=== PATIENT | male | born 1965 | race African-American/Black ===

== ENCOUNTER 2022-07-02 18:06 | Inpatient (IN) | payer OTHER ==
[2022-07-02 20:07] VITALS: BMI 34.7
[2022-07-02] MEDS ORDERED: BISMUTH SUBSALICYLATE 524 MG/30 ML PO PRN (20:31)
[2022-07-02] MEDS ORDERED: IBUPROFEN 400 MG TABLET (FP) PO PRN (20:31)
[2022-07-02] MEDS ORDERED: NICOTINE 10 MG CARTRIDGE (INHALER) IH PRN (20:31)
[2022-07-02] MEDS ORDERED: MAGNESIUM HYDROX 2400MG/30ML ORAL SUSPENSION 30 ML CUP PO PRN (20:31)
[2022-07-02] MEDS ORDERED: NALOXONE HCL (KLOXXADO) 8 MG SPRAY NS PRN (20:31)
[2022-07-02] MEDS ORDERED: ACETAMINOPHEN 325 MG TABLET (FP) PO PRN ×2 (20:31)
[2022-07-02] MEDS ORDERED: DICYCLOMINE HCL 10 MG CAPSULE PO PRN (20:31)
[2022-07-02] MEDS ORDERED: P-EPHED 60MG/TRIPROLIDI 2.5MG TABLET PO PRN (20:31)
[2022-07-02] MEDS ORDERED: NALOXONE HCL 0.4 MG/ML VIAL IM PRN (20:31)
[2022-07-02] MEDS ORDERED: ONDANSETRON *ODT* 4 MG TABLET SL PRN (20:31)
[2022-07-02] MEDS ORDERED: MAGNESIUM CITRATE 300 ML BOTTLE PO PRN (20:31)
[2022-07-02] MEDS ORDERED: guaiFENesin 200 MG/10 ML 10 ML UNIT-DOSE CUPS PO PRN (20:31)
[2022-07-02] MEDS ORDERED: IBUPROFEN 600 MG TABLET (FP) PO PRN (20:31)
[2022-07-02] MEDS ORDERED: MAG HYDROX/AL HYDROX/SIMETH 30 ML UNIT-DOSE CUP PO PRN (20:31)
[2022-07-02] MEDS ORDERED: BENZOCAINE/MENTHOL (CHLORASEPTIC ) LOZENGE MM PRN (20:31)
[2022-07-02] MEDS ORDERED: AMMONIUM LACTATE 12% LOTION 225 GM BOTTLE TP PRN (20:33)
[2022-07-02] MEDS ORDERED: diphenhydrAMINE HCL 25 MG CAPSULE (FP) PO ONE ×2 (20:33→20:50)
[2022-07-02] MEDS ORDERED: hydrOXYzine PAMOATE 25 MG CAPSULE (FP) PO ONE (20:52)
[2022-07-02] MEDS: hydrOXYzine PAMOATE 25 MG CAPSULE (FP) PO PRN (20:59)
[2022-07-02] MEDS ORDERED: diphenhydrAMINE HCL 25 MG CAPSULE (FP) PO PRN (22:33)
[2022-07-02] MEDS: MELATONIN 5 MG TABLETS PO PRN (22:47)
[2022-07-02] MEDS: THIAMINE HCL 100 MG TABLET (FP) PO SCH (22:47)
[2022-07-02] MEDS: GABAPENTIN 400 MG CAPSULE PO SCH (22:48)
[2022-07-02] MEDS: ASPIRIN 81 MG CHEWABLE TABLETS PO SCH (22:48)
[2022-07-02] MEDS: cloNIDine HCL 0.1 MG TABLET PO PRN (22:48)
[2022-07-03] MEDS: metFORMIN HCL 500 MG TABLET (FP) PO SCH (06:09)
[2022-07-03] MEDS: METHOCARBAMOL 500 MG TABLET PO PRN (10:26)
[2022-07-03] MEDS: ASPIRIN 81 MG CHEWABLE TABLETS PO SCH (10:27)
[2022-07-03] MEDS: GABAPENTIN 400 MG CAPSULE PO SCH ×2 (10:27→22:45)
[2022-07-03] MEDS: PRENATAL VITAMINS W/ FOLIC ACID TABLET (FP) PO SCH (10:28)
[2022-07-03] MEDS: EMTRICITABINE 200MG/TENOFOVIR 300MG PO SCH (11:00)
[2022-07-03] MEDS: LISINOPRIL 5 MG TABLET PO SCH (11:00)
[2022-07-03] MEDS: RALTEGRAVIR POTASSIUM 400 MG TAB PO SCH ×2 (11:00→22:46)
[2022-07-03 15:28] LABS: HEMATOCRIT 40.9 % (35.4-49); HEMOGLOBIN 13.8 GM/dL (11.7-16.9); MCH 28.6 pg (25.7-33.7); MCHC 33.7 g/dl (32.0-35.9); MEAN CELL VOLUME 84.9 fl (80-96); MEAN PLT VOLUME 8.8 fl (7.5-11.1); PLATELET COUNT 262 10^3/uL (134-434); RBC 4.82 M/mm3 (4.00-5.60); RDW 13.8 % (11.9-15.9); WHITE BLOOD COUNT 5.7 K/mm3 (4.0-10.0)
[2022-07-03 18:14] LABS: ALBUMIN 3.2 g/dl (3.4-5.0)
[2022-07-03 18:15] LABS: CALCIUM 8.7 mg/dL (8.5-10.1)
[2022-07-03 18:16] LABS: BLOOD UREA NITROGEN 9.7 mg/dL (7-18)
[2022-07-03 18:21] LABS: BILIRUBIN,TOTAL 0.7 mg/dL (0.2-1)
[2022-07-03] MEDS: CITALOPRAM HYDROBROMIDE 20 MG TABLET PO SCH (18:29)
[2022-07-03] MEDS: THIAMINE HCL 100 MG TABLET (FP) PO SCH (22:45)
[2022-07-04] MEDS: metFORMIN HCL 500 MG TABLET (FP) PO SCH (07:00)
[2022-07-04] MEDS ORDERED: methaDONE HCL 10 MG TABLET (FOR DETOX USE ONLY) PO ONE (10:00)
[2022-07-04] MEDS: PRENATAL VITAMINS W/ FOLIC ACID TABLET (FP) PO SCH (10:34)
[2022-07-04] MEDS: RALTEGRAVIR POTASSIUM 400 MG TAB PO SCH ×2 (10:34→22:34)
[2022-07-04] MEDS: ASPIRIN 81 MG CHEWABLE TABLETS PO SCH (10:35)
[2022-07-04] MEDS: EMTRICITABINE 200MG/TENOFOVIR 300MG PO SCH (10:35)
[2022-07-04] MEDS: GABAPENTIN 400 MG CAPSULE PO SCH ×2 (10:35→22:35)
[2022-07-04] MEDS: LISINOPRIL 5 MG TABLET PO SCH (10:35)
[2022-07-04] MEDS: METHOCARBAMOL 500 MG TABLET PO PRN (10:35)
[2022-07-04] MEDS: CITALOPRAM HYDROBROMIDE 20 MG TABLET PO SCH (10:37)
[2022-07-04] MEDS: cloNIDine HCL 0.1 MG TABLET PO PRN (22:35)
[2022-07-04] MEDS: MELATONIN 5 MG TABLETS PO PRN (22:35)
[2022-07-04] MEDS: THIAMINE HCL 100 MG TABLET (FP) PO SCH (22:35)
[2022-07-04] MEDS: hydrOXYzine PAMOATE 25 MG CAPSULE (FP) PO PRN (22:35)
[2022-07-04] MEDS: LOPERAMIDE HCL 2 MG CAPSULE PO PRN (23:00)
[2022-07-05] MEDS: metFORMIN HCL 500 MG TABLET (FP) PO SCH (06:22)
[2022-07-05] MEDS: hydrOXYzine PAMOATE 25 MG CAPSULE (FP) PO PRN ×2 (06:23→22:44)
[2022-07-05] MEDS: LOPERAMIDE HCL 2 MG CAPSULE PO PRN (06:23)
[2022-07-05] MEDS ORDERED: DIPHENOXYLATE 2.5/ATROPINE.025 1 COMBO TABLET PO ONE (09:25)
[2022-07-05] MEDS: CITALOPRAM HYDROBROMIDE 20 MG TABLET PO SCH (10:08)
[2022-07-05] MEDS: LISINOPRIL 5 MG TABLET PO SCH (10:08)
[2022-07-05] MEDS: GABAPENTIN 400 MG CAPSULE PO SCH ×2 (10:08→22:44)
[2022-07-05] MEDS: EMTRICITABINE 200MG/TENOFOVIR 300MG PO SCH (10:08)
[2022-07-05] MEDS: RALTEGRAVIR POTASSIUM 400 MG TAB PO SCH ×2 (10:08→22:45)
[2022-07-05] MEDS: ASPIRIN 81 MG CHEWABLE TABLETS PO SCH (10:08)
[2022-07-05] MEDS: PRENATAL VITAMINS W/ FOLIC ACID TABLET (FP) PO SCH (10:14)
[2022-07-05] MEDS: MELATONIN 5 MG TABLETS PO PRN (22:44)
[2022-07-05] MEDS: METHOCARBAMOL 500 MG TABLET PO PRN (22:44)
[2022-07-05] MEDS: THIAMINE HCL 100 MG TABLET (FP) PO SCH (22:44)
[2022-07-06] MEDS: metFORMIN HCL 500 MG TABLET (FP) PO SCH (06:42)
[2022-07-06] MEDS ORDERED: methaDONE HCL 10 MG TABLET (FOR DETOX USE ONLY) PO ONE (10:00)
[2022-07-06] MEDS: CITALOPRAM HYDROBROMIDE 20 MG TABLET PO SCH (10:47)
[2022-07-06] MEDS: PRENATAL VITAMINS W/ FOLIC ACID TABLET (FP) PO SCH (10:47)
[2022-07-06] MEDS: ASPIRIN 81 MG CHEWABLE TABLETS PO SCH (10:47)
[2022-07-06] MEDS: GABAPENTIN 400 MG CAPSULE PO SCH ×2 (10:47→22:41)
[2022-07-06] MEDS: LISINOPRIL 5 MG TABLET PO SCH (10:48)
[2022-07-06] MEDS: RALTEGRAVIR POTASSIUM 400 MG TAB PO SCH ×2 (10:48→22:41)
[2022-07-06] MEDS: EMTRICITABINE 200MG/TENOFOVIR 300MG PO SCH (10:48)
[2022-07-06] MEDS: THIAMINE HCL 100 MG TABLET (FP) PO SCH (22:41)
[2022-07-06] MEDS: hydrOXYzine PAMOATE 25 MG CAPSULE (FP) PO PRN (22:41)
[2022-07-06] MEDS: METHOCARBAMOL 500 MG TABLET PO PRN (22:41)
[2022-07-07] MEDS: metFORMIN HCL 500 MG TABLET (FP) PO SCH (06:14)
[2022-07-07] MEDS: GABAPENTIN 400 MG CAPSULE PO SCH (10:40)
[2022-07-07] MEDS: LISINOPRIL 5 MG TABLET PO SCH (10:40)
[2022-07-07] MEDS: ASPIRIN 81 MG CHEWABLE TABLETS PO SCH (10:41)
[2022-07-07] MEDS: PRENATAL VITAMINS W/ FOLIC ACID TABLET (FP) PO SCH (10:41)
[2022-07-07] MEDS: hydrOXYzine PAMOATE 25 MG CAPSULE (FP) PO PRN (10:41)
[2022-07-07] MEDS: METHOCARBAMOL 500 MG TABLET PO PRN (10:41)
[2022-07-07] MEDS: EMTRICITABINE 200MG/TENOFOVIR 300MG PO SCH (10:42)
[2022-07-07] MEDS: CITALOPRAM HYDROBROMIDE 20 MG TABLET PO SCH (10:42)
[2022-07-07] MEDS: RALTEGRAVIR POTASSIUM 400 MG TAB PO SCH (10:42)
[2022-07-07] MEDS: LOPERAMIDE HCL 2 MG CAPSULE PO PRN (10:44)
[2022-07-07 13:32] VITALS: BP 129/63; PULSE 91; RESP 19; TEMP 97.7
== END 2022-07-07 14:36 | disposition other institution (70) | DRG 773 ==
LOC: YASAS 18:06 → Y6N 21:41
PROVIDERS: ADMIT Allergy & Immunology; ATTEND Surgery
PROC: HZ2ZZZZ Detoxification Services for Substance Abuse Treatment (ICD-10-PCS; principal; 2022-07-02)
DX: F11.23 Opioid dependence with withdrawal (principal); F10.230 Alcohol dependence with withdrawal, uncomplicated; F14.20 Cocaine dependence, uncomplicated; F12.20 Cannabis dependence, uncomplicated; F17.210 Nicotine dependence, cigarettes, uncomplicated; F39 Unspecified mood [affective] disorder; F19.282 Other psychoactive substance dependence with psychoactive substance-induced sleep disorder; F19.280 Other psychoactive substance dependence with psychoactive substance-induced anxiety disorder; F19.24 Other psychoactive substance dependence with psychoactive substance-induced mood disorder; Z21 Asymptomatic human immunodeficiency virus [HIV] infection status; I10 Essential (primary) hypertension; E11.42 Type 2 diabetes mellitus with diabetic polyneuropathy; Z79.84 Long term (current) use of oral hypoglycemic drugs; B18.2 Chronic viral hepatitis C
CPT/HCPCS: 36415; 80053; 82962; 84450; 85027; 86780; 87811; 93005; 93010; 99281-25; C9803-CS; U0003; U0005

== ENCOUNTER 2022-07-07 14:30 | Inpatient (IN) | payer OTHER ==
[2022-07-07] MEDS ORDERED: P-EPHED 60MG/TRIPROLIDI 2.5MG TABLET PO PRN (15:07)
[2022-07-07] MEDS ORDERED: MAGNESIUM HYDROX 2400MG/30ML ORAL SUSPENSION 30 ML CUP PO PRN (15:07)
[2022-07-07] MEDS ORDERED: MAG HYDROX/AL HYDROX/SIMETH 30 ML UNIT-DOSE CUP PO PRN (15:07)
[2022-07-07] MEDS ORDERED: IBUPROFEN 400 MG TABLET (FP) PO PRN (15:07)
[2022-07-07] MEDS ORDERED: MAGNESIUM CITRATE 300 ML BOTTLE PO PRN (15:07)
[2022-07-07] MEDS ORDERED: ACETAMINOPHEN 325 MG TABLET (FP) PO PRN (15:07)
[2022-07-07] MEDS ORDERED: LOPERAMIDE HCL 2 MG CAPSULE PO PRN (15:07)
[2022-07-07] MEDS: INSULIN SLIDING SCALE (NOVOLOG) 1 VIAL SQ SCH (19:33)
[2022-07-07] MEDS: MELATONIN 5 MG TABLETS PO SCH (21:43)
[2022-07-07] MEDS: GABAPENTIN 400 MG CAPSULE PO SCH (21:44)
[2022-07-07] MEDS: RALTEGRAVIR POTASSIUM 400 MG TAB PO SCH (21:44)
[2022-07-07] MEDS: THIAMINE HCL 100 MG TABLET (FP) PO SCH (21:44)
[2022-07-08] MEDS: metFORMIN HCL 500 MG TABLET (FP) PO SCH (06:11)
[2022-07-08] MEDS: INSULIN SLIDING SCALE (NOVOLOG) 1 VIAL SQ SCH ×2 (06:14→19:57)
[2022-07-08] MEDS: PRENATAL VITAMINS W/ FOLIC ACID TABLET (FP) PO SCH (10:05)
[2022-07-08] MEDS: RALTEGRAVIR POTASSIUM 400 MG TAB PO SCH ×2 (10:05→21:32)
[2022-07-08] MEDS: EMTRICITABINE 200MG/TENOFOVIR 300MG PO SCH (10:05)
[2022-07-08] MEDS: GABAPENTIN 400 MG CAPSULE PO SCH ×2 (10:06→21:32)
[2022-07-08] MEDS: ASPIRIN COATED 81 MG TABLET.EC PO SCH (10:06)
[2022-07-08] MEDS: LISINOPRIL 5 MG TABLET PO SCH (10:06)
[2022-07-08] MEDS: lamoTRIgine 25 MG TABLET PO SCH (11:23)
[2022-07-08] MEDS: CITALOPRAM HYDROBROMIDE 20 MG TABLET PO SCH (11:23)
[2022-07-08] MEDS: THIAMINE HCL 100 MG TABLET (FP) PO SCH (21:31)
[2022-07-08] MEDS: MELATONIN 5 MG TABLETS PO SCH (21:31)
[2022-07-09] MEDS: metFORMIN HCL 500 MG TABLET (FP) PO SCH (06:29)
[2022-07-09] MEDS: INSULIN SLIDING SCALE (NOVOLOG) 1 VIAL SQ SCH ×2 (06:30→16:39)
[2022-07-09] MEDS: PRENATAL VITAMINS W/ FOLIC ACID TABLET (FP) PO SCH (10:05)
[2022-07-09] MEDS: RALTEGRAVIR POTASSIUM 400 MG TAB PO SCH ×2 (10:05→21:31)
[2022-07-09] MEDS: EMTRICITABINE 200MG/TENOFOVIR 300MG PO SCH (10:05)
[2022-07-09] MEDS: lamoTRIgine 25 MG TABLET PO SCH (10:05)
[2022-07-09] MEDS: CITALOPRAM HYDROBROMIDE 20 MG TABLET PO SCH (10:05)
[2022-07-09] MEDS: GABAPENTIN 400 MG CAPSULE PO SCH ×2 (10:06→21:31)
[2022-07-09] MEDS: LISINOPRIL 5 MG TABLET PO SCH (10:06)
[2022-07-09] MEDS: ASPIRIN COATED 81 MG TABLET.EC PO SCH (10:07)
[2022-07-09] MEDS: MELATONIN 5 MG TABLETS PO SCH (21:30)
[2022-07-09] MEDS: THIAMINE HCL 100 MG TABLET (FP) PO SCH (21:31)
[2022-07-10] MEDS: INSULIN SLIDING SCALE (NOVOLOG) 1 VIAL SQ SCH ×2 (06:40→16:37)
[2022-07-10] MEDS: metFORMIN HCL 500 MG TABLET (FP) PO SCH (06:46)
[2022-07-10] MEDS: PRENATAL VITAMINS W/ FOLIC ACID TABLET (FP) PO SCH (09:21)
[2022-07-10] MEDS: LISINOPRIL 5 MG TABLET PO SCH (09:22)
[2022-07-10] MEDS: GABAPENTIN 400 MG CAPSULE PO SCH ×2 (09:22→21:07)
[2022-07-10] MEDS: ASPIRIN COATED 81 MG TABLET.EC PO SCH (09:22)
[2022-07-10] MEDS: RALTEGRAVIR POTASSIUM 400 MG TAB PO SCH ×2 (09:23→21:11)
[2022-07-10] MEDS: EMTRICITABINE 200MG/TENOFOVIR 300MG PO SCH (09:23)
[2022-07-10] MEDS: lamoTRIgine 25 MG TABLET PO SCH (09:24)
[2022-07-10] MEDS: CITALOPRAM HYDROBROMIDE 20 MG TABLET PO SCH (09:24)
[2022-07-10] MEDS: MELATONIN 5 MG TABLETS PO SCH (21:07)
[2022-07-10] MEDS: THIAMINE HCL 100 MG TABLET (FP) PO SCH (21:08)
[2022-07-10] MEDS: BENZOCAINE/MENTHOL (CHLORASEPTIC ) LOZENGE MM PRN (23:31)
[2022-07-11] MEDS: guaiFENesin 200 MG/10 ML 10 ML UNIT-DOSE CUPS PO PRN (00:37)
[2022-07-11] MEDS: metFORMIN HCL 500 MG TABLET (FP) PO SCH (06:42)
[2022-07-11] MEDS: INSULIN SLIDING SCALE (NOVOLOG) 1 VIAL SQ SCH ×2 (06:43→16:51)
[2022-07-11] MEDS: PRENATAL VITAMINS W/ FOLIC ACID TABLET (FP) PO SCH (09:48)
[2022-07-11] MEDS: LISINOPRIL 5 MG TABLET PO SCH (09:48)
[2022-07-11] MEDS: CITALOPRAM HYDROBROMIDE 20 MG TABLET PO SCH (09:49)
[2022-07-11] MEDS: GABAPENTIN 400 MG CAPSULE PO SCH ×2 (09:49→21:27)
[2022-07-11] MEDS: ASPIRIN COATED 81 MG TABLET.EC PO SCH (09:49)
[2022-07-11] MEDS: lamoTRIgine 25 MG TABLET PO SCH (10:05)
[2022-07-11] MEDS: RALTEGRAVIR POTASSIUM 400 MG TAB PO SCH ×2 (10:05→21:27)
[2022-07-11] MEDS: EMTRICITABINE 200MG/TENOFOVIR 300MG PO SCH (10:05)
[2022-07-11] MEDS: MELATONIN 5 MG TABLETS PO SCH (21:27)
[2022-07-11] MEDS: THIAMINE HCL 100 MG TABLET (FP) PO SCH (21:27)
[2022-07-12] MEDS: metFORMIN HCL 500 MG TABLET (FP) PO SCH (06:36)
[2022-07-12] MEDS: INSULIN SLIDING SCALE (NOVOLOG) 1 VIAL SQ SCH ×2 (06:36→16:50)
[2022-07-12] MEDS: CITALOPRAM HYDROBROMIDE 20 MG TABLET PO SCH (10:17)
[2022-07-12] MEDS: lamoTRIgine 25 MG TABLET PO SCH (10:17)
[2022-07-12] MEDS: ASPIRIN COATED 81 MG TABLET.EC PO SCH (10:17)
[2022-07-12] MEDS: GABAPENTIN 400 MG CAPSULE PO SCH ×2 (10:17→21:21)
[2022-07-12] MEDS: LISINOPRIL 5 MG TABLET PO SCH (10:18)
[2022-07-12] MEDS: PRENATAL VITAMINS W/ FOLIC ACID TABLET (FP) PO SCH (10:18)
[2022-07-12] MEDS: RALTEGRAVIR POTASSIUM 400 MG TAB PO SCH ×2 (10:18→21:21)
[2022-07-12] MEDS: EMTRICITABINE 200MG/TENOFOVIR 300MG PO SCH (10:18)
[2022-07-12] MEDS: guaiFENesin 200 MG/10 ML 10 ML UNIT-DOSE CUPS PO PRN ×2 (10:18→21:23)
[2022-07-12] MEDS: MELATONIN 5 MG TABLETS PO SCH (21:21)
[2022-07-12] MEDS: THIAMINE HCL 100 MG TABLET (FP) PO SCH (21:21)
[2022-07-12] MEDS: BENZOCAINE/MENTHOL (CHLORASEPTIC ) LOZENGE MM PRN (21:23)
[2022-07-13] MEDS: metFORMIN HCL 500 MG TABLET (FP) PO SCH (06:35)
[2022-07-13] MEDS: INSULIN SLIDING SCALE (NOVOLOG) 1 VIAL SQ SCH ×2 (06:36→16:53)
[2022-07-13] MEDS: PRENATAL VITAMINS W/ FOLIC ACID TABLET (FP) PO SCH (09:55)
[2022-07-13] MEDS: GABAPENTIN 400 MG CAPSULE PO SCH ×2 (09:56→21:11)
[2022-07-13] MEDS: CITALOPRAM HYDROBROMIDE 20 MG TABLET PO SCH (09:56)
[2022-07-13] MEDS: ASPIRIN COATED 81 MG TABLET.EC PO SCH (09:56)
[2022-07-13] MEDS: RALTEGRAVIR POTASSIUM 400 MG TAB PO SCH ×2 (09:57→21:26)
[2022-07-13] MEDS: LISINOPRIL 5 MG TABLET PO SCH (09:57)
[2022-07-13] MEDS: EMTRICITABINE 200MG/TENOFOVIR 300MG PO SCH (09:58)
[2022-07-13] MEDS: lamoTRIgine 25 MG TABLET PO SCH (09:58)
[2022-07-13] MEDS: MELATONIN 5 MG TABLETS PO SCH (21:11)
[2022-07-13] MEDS: THIAMINE HCL 100 MG TABLET (FP) PO SCH (21:11)
[2022-07-14] MEDS: metFORMIN HCL 500 MG TABLET (FP) PO SCH (06:33)
[2022-07-14] MEDS: INSULIN SLIDING SCALE (NOVOLOG) 1 VIAL SQ SCH ×2 (06:34→17:00)
[2022-07-14] MEDS: ASPIRIN COATED 81 MG TABLET.EC PO SCH (09:59)
[2022-07-14] MEDS: PRENATAL VITAMINS W/ FOLIC ACID TABLET (FP) PO SCH (09:59)
[2022-07-14] MEDS: CITALOPRAM HYDROBROMIDE 20 MG TABLET PO SCH (09:59)
[2022-07-14] MEDS: GABAPENTIN 400 MG CAPSULE PO SCH ×2 (09:59→21:08)
[2022-07-14] MEDS: RALTEGRAVIR POTASSIUM 400 MG TAB PO SCH ×2 (09:59→21:08)
[2022-07-14] MEDS: lamoTRIgine 25 MG TABLET PO SCH (10:00)
[2022-07-14] MEDS: EMTRICITABINE 200MG/TENOFOVIR 300MG PO SCH (10:01)
[2022-07-14] MEDS: LISINOPRIL 5 MG TABLET PO SCH (10:02)
[2022-07-14] MEDS: NICOTINE 10 MG CARTRIDGE (INHALER) IH PRN (10:02)
[2022-07-14] MEDS: MELATONIN 5 MG TABLETS PO SCH (21:08)
[2022-07-14] MEDS: THIAMINE HCL 100 MG TABLET (FP) PO SCH (21:08)
[2022-07-15] MEDS: metFORMIN HCL 500 MG TABLET (FP) PO SCH (06:32)
[2022-07-15] MEDS: INSULIN SLIDING SCALE (NOVOLOG) 1 VIAL SQ SCH ×2 (06:32→16:39)
[2022-07-15] MEDS: GABAPENTIN 400 MG CAPSULE PO SCH ×2 (09:50→21:12)
[2022-07-15] MEDS: ASPIRIN COATED 81 MG TABLET.EC PO SCH (09:50)
[2022-07-15] MEDS: RALTEGRAVIR POTASSIUM 400 MG TAB PO SCH ×2 (09:51→21:12)
[2022-07-15] MEDS: CITALOPRAM HYDROBROMIDE 20 MG TABLET PO SCH (09:51)
[2022-07-15] MEDS: EMTRICITABINE 200MG/TENOFOVIR 300MG PO SCH (09:51)
[2022-07-15] MEDS: lamoTRIgine 25 MG TABLET PO SCH (09:51)
[2022-07-15] MEDS: LISINOPRIL 5 MG TABLET PO SCH (09:52)
[2022-07-15] MEDS: PRENATAL VITAMINS W/ FOLIC ACID TABLET (FP) PO SCH (09:52)
[2022-07-15] MEDS: NICOTINE 10 MG CARTRIDGE (INHALER) IH PRN (12:36)
[2022-07-15] MEDS: MELATONIN 5 MG TABLETS PO SCH (21:12)
[2022-07-15] MEDS: THIAMINE HCL 100 MG TABLET (FP) PO SCH (21:13)
[2022-07-16] MEDS: INSULIN SLIDING SCALE (NOVOLOG) 1 VIAL SQ SCH ×2 (06:40→17:19)
[2022-07-16] MEDS: metFORMIN HCL 500 MG TABLET (FP) PO SCH (06:40)
[2022-07-16] MEDS: NICOTINE 10 MG CARTRIDGE (INHALER) IH PRN (07:38)
[2022-07-16] MEDS: PRENATAL VITAMINS W/ FOLIC ACID TABLET (FP) PO SCH (10:00)
[2022-07-16] MEDS: CITALOPRAM HYDROBROMIDE 20 MG TABLET PO SCH (10:00)
[2022-07-16] MEDS: ASPIRIN COATED 81 MG TABLET.EC PO SCH (10:00)
[2022-07-16] MEDS: GABAPENTIN 400 MG CAPSULE PO SCH ×2 (10:01→21:10)
[2022-07-16] MEDS: lamoTRIgine 25 MG TABLET PO SCH (10:02)
[2022-07-16] MEDS: EMTRICITABINE 200MG/TENOFOVIR 300MG PO SCH (10:02)
[2022-07-16] MEDS: RALTEGRAVIR POTASSIUM 400 MG TAB PO SCH ×2 (10:03→21:10)
[2022-07-16] MEDS: LISINOPRIL 5 MG TABLET PO SCH (10:04)
[2022-07-16] MEDS: MELATONIN 5 MG TABLETS PO SCH (21:10)
[2022-07-16] MEDS: THIAMINE HCL 100 MG TABLET (FP) PO SCH (21:10)
[2022-07-17] MEDS: metFORMIN HCL 500 MG TABLET (FP) PO SCH (06:45)
[2022-07-17] MEDS: INSULIN SLIDING SCALE (NOVOLOG) 1 VIAL SQ SCH ×2 (06:47→16:28)
[2022-07-17] MEDS: LISINOPRIL 5 MG TABLET PO SCH (10:13)
[2022-07-17] MEDS: PRENATAL VITAMINS W/ FOLIC ACID TABLET (FP) PO SCH (10:13)
[2022-07-17] MEDS: GABAPENTIN 400 MG CAPSULE PO SCH ×2 (10:14→21:18)
[2022-07-17] MEDS: ASPIRIN COATED 81 MG TABLET.EC PO SCH (10:14)
[2022-07-17] MEDS: lamoTRIgine 25 MG TABLET PO SCH (10:14)
[2022-07-17] MEDS: CITALOPRAM HYDROBROMIDE 20 MG TABLET PO SCH (10:14)
[2022-07-17] MEDS: RALTEGRAVIR POTASSIUM 400 MG TAB PO SCH ×2 (10:15→21:18)
[2022-07-17] MEDS: EMTRICITABINE 200MG/TENOFOVIR 300MG PO SCH (10:15)
[2022-07-17] MEDS ORDERED: INSULIN (NOVOLOG) ASPART 100 UNITS/ML 10ML VIAL ONE (16:22)
[2022-07-17] MEDS: NICOTINE 10 MG CARTRIDGE (INHALER) IH PRN (20:03)
[2022-07-17] MEDS: MELATONIN 5 MG TABLETS PO SCH (21:18)
[2022-07-17] MEDS: THIAMINE HCL 100 MG TABLET (FP) PO SCH (21:18)
[2022-07-18] MEDS: metFORMIN HCL 500 MG TABLET (FP) PO SCH (06:40)
[2022-07-18] MEDS: INSULIN SLIDING SCALE (NOVOLOG) 1 VIAL SQ SCH ×2 (06:47→16:30)
[2022-07-18] MEDS: PRENATAL VITAMINS W/ FOLIC ACID TABLET (FP) PO SCH (09:56)
[2022-07-18] MEDS: ASPIRIN COATED 81 MG TABLET.EC PO SCH (09:56)
[2022-07-18] MEDS: GABAPENTIN 400 MG CAPSULE PO SCH ×2 (09:56→21:19)
[2022-07-18] MEDS: RALTEGRAVIR POTASSIUM 400 MG TAB PO SCH ×2 (09:57→21:18)
[2022-07-18] MEDS: CITALOPRAM HYDROBROMIDE 20 MG TABLET PO SCH (09:57)
[2022-07-18] MEDS: lamoTRIgine 25 MG TABLET PO SCH (09:57)
[2022-07-18] MEDS: EMTRICITABINE 200MG/TENOFOVIR 300MG PO SCH (09:58)
[2022-07-18] MEDS: LISINOPRIL 5 MG TABLET PO SCH (10:01)
[2022-07-18] MEDS: THIAMINE HCL 100 MG TABLET (FP) PO SCH (21:18)
[2022-07-18] MEDS: MELATONIN 5 MG TABLETS PO SCH (21:18)
[2022-07-19] MEDS: INSULIN SLIDING SCALE (NOVOLOG) 1 VIAL SQ SCH ×2 (06:55→16:37)
[2022-07-19] MEDS: metFORMIN HCL 500 MG TABLET (FP) PO SCH (06:55)
[2022-07-19] MEDS: GABAPENTIN 400 MG CAPSULE PO SCH ×2 (10:12→21:26)
[2022-07-19] MEDS: ASPIRIN COATED 81 MG TABLET.EC PO SCH (10:12)
[2022-07-19] MEDS: PRENATAL VITAMINS W/ FOLIC ACID TABLET (FP) PO SCH (10:12)
[2022-07-19] MEDS: lamoTRIgine 25 MG TABLET PO SCH (10:13)
[2022-07-19] MEDS: CITALOPRAM HYDROBROMIDE 20 MG TABLET PO SCH (10:13)
[2022-07-19] MEDS: EMTRICITABINE 200MG/TENOFOVIR 300MG PO SCH (10:13)
[2022-07-19] MEDS: RALTEGRAVIR POTASSIUM 400 MG TAB PO SCH ×2 (10:13→21:26)
[2022-07-19] MEDS: LISINOPRIL 5 MG TABLET PO SCH (10:15)
[2022-07-19] MEDS: THIAMINE HCL 100 MG TABLET (FP) PO SCH (21:26)
[2022-07-19] MEDS: MELATONIN 5 MG TABLETS PO SCH (21:26)
[2022-07-20] MEDS: metFORMIN HCL 500 MG TABLET (FP) PO SCH (06:42)
[2022-07-20] MEDS: INSULIN SLIDING SCALE (NOVOLOG) 1 VIAL SQ SCH ×2 (06:46→16:57)
[2022-07-20] MEDS: IBUPROFEN 400 MG TABLET (FP) PO PRN ×2 (09:00→21:20)
[2022-07-20] MEDS ORDERED: BENZOCAINE 20 % GEL TUBE MM PRN (09:27)
[2022-07-20] MEDS: PRENATAL VITAMINS W/ FOLIC ACID TABLET (FP) PO SCH (10:09)
[2022-07-20] MEDS: CITALOPRAM HYDROBROMIDE 20 MG TABLET PO SCH (10:09)
[2022-07-20] MEDS: ASPIRIN COATED 81 MG TABLET.EC PO SCH (10:10)
[2022-07-20] MEDS: LISINOPRIL 5 MG TABLET PO SCH (10:10)
[2022-07-20] MEDS: GABAPENTIN 400 MG CAPSULE PO SCH ×2 (10:10→21:18)
[2022-07-20] MEDS: lamoTRIgine 25 MG TABLET PO SCH (10:11)
[2022-07-20] MEDS: RALTEGRAVIR POTASSIUM 400 MG TAB PO SCH ×2 (10:11→21:18)
[2022-07-20] MEDS: EMTRICITABINE 200MG/TENOFOVIR 300MG PO SCH (10:12)
[2022-07-20] MEDS: NICOTINE 10 MG CARTRIDGE (INHALER) IH PRN (10:58)
[2022-07-20] MEDS: THIAMINE HCL 100 MG TABLET (FP) PO SCH (21:18)
[2022-07-20] MEDS: MELATONIN 5 MG TABLETS PO SCH (21:18)
[2022-07-21] MEDS: metFORMIN HCL 500 MG TABLET (FP) PO SCH (07:21)
[2022-07-21] MEDS: INSULIN SLIDING SCALE (NOVOLOG) 1 VIAL SQ SCH ×2 (07:22→17:10)
[2022-07-21] MEDS: ASPIRIN COATED 81 MG TABLET.EC PO SCH (10:16)
[2022-07-21] MEDS: GABAPENTIN 400 MG CAPSULE PO SCH ×2 (10:16→21:15)
[2022-07-21] MEDS: PRENATAL VITAMINS W/ FOLIC ACID TABLET (FP) PO SCH (10:16)
[2022-07-21] MEDS: CITALOPRAM HYDROBROMIDE 20 MG TABLET PO SCH (10:16)
[2022-07-21] MEDS: lamoTRIgine 25 MG TABLET PO SCH (10:17)
[2022-07-21] MEDS: RALTEGRAVIR POTASSIUM 400 MG TAB PO SCH ×2 (10:17→21:16)
[2022-07-21] MEDS: EMTRICITABINE 200MG/TENOFOVIR 300MG PO SCH (10:18)
[2022-07-21] MEDS: hydrOXYzine PAMOATE 25 MG CAPSULE (FP) PO PRN ×2 (10:19→21:15)
[2022-07-21] MEDS: LISINOPRIL 5 MG TABLET PO SCH (10:21)
[2022-07-21] MEDS: NICOTINE 10 MG CARTRIDGE (INHALER) IH PRN ×2 (12:39→19:54)
[2022-07-21] MEDS: MELATONIN 5 MG TABLETS PO SCH (21:15)
[2022-07-21] MEDS: THIAMINE HCL 100 MG TABLET (FP) PO SCH (21:15)
[2022-07-22] MEDS ORDERED: INSULIN (NOVOLOG) ASPART 100 UNITS/ML 10ML VIAL ONE (02:44)
[2022-07-22] MEDS: INSULIN SLIDING SCALE (NOVOLOG) 1 VIAL SQ SCH ×2 (06:37→17:08)
[2022-07-22] MEDS: hydrOXYzine PAMOATE 25 MG CAPSULE (FP) PO PRN ×2 (06:38→21:20)
[2022-07-22] MEDS: metFORMIN HCL 500 MG TABLET (FP) PO SCH (06:38)
[2022-07-22] MEDS: PRENATAL VITAMINS W/ FOLIC ACID TABLET (FP) PO SCH (09:41)
[2022-07-22] MEDS: ASPIRIN COATED 81 MG TABLET.EC PO SCH (09:41)
[2022-07-22] MEDS: LISINOPRIL 5 MG TABLET PO SCH (09:42)
[2022-07-22] MEDS: CITALOPRAM HYDROBROMIDE 20 MG TABLET PO SCH (09:42)
[2022-07-22] MEDS: RALTEGRAVIR POTASSIUM 400 MG TAB PO SCH ×2 (09:42→21:20)
[2022-07-22] MEDS: GABAPENTIN 400 MG CAPSULE PO SCH ×2 (09:42→21:20)
[2022-07-22] MEDS: lamoTRIgine 25 MG TABLET PO SCH (09:43)
[2022-07-22] MEDS: EMTRICITABINE 200MG/TENOFOVIR 300MG PO SCH (09:43)
[2022-07-22] MEDS: THIAMINE HCL 100 MG TABLET (FP) PO SCH (21:20)
[2022-07-22] MEDS: MELATONIN 5 MG TABLETS PO SCH (21:20)
[2022-07-23] MEDS: metFORMIN HCL 500 MG TABLET (FP) PO SCH (06:52)
[2022-07-23] MEDS: INSULIN SLIDING SCALE (NOVOLOG) 1 VIAL SQ SCH ×2 (06:53→16:56)
[2022-07-23] MEDS: LISINOPRIL 5 MG TABLET PO SCH (10:02)
[2022-07-23] MEDS: ASPIRIN COATED 81 MG TABLET.EC PO SCH (10:02)
[2022-07-23] MEDS: CITALOPRAM HYDROBROMIDE 20 MG TABLET PO SCH (10:02)
[2022-07-23] MEDS: GABAPENTIN 400 MG CAPSULE PO SCH ×2 (10:02→21:22)
[2022-07-23] MEDS: PRENATAL VITAMINS W/ FOLIC ACID TABLET (FP) PO SCH (10:02)
[2022-07-23] MEDS: lamoTRIgine 25 MG TABLET PO SCH (10:03)
[2022-07-23] MEDS: EMTRICITABINE 200MG/TENOFOVIR 300MG PO SCH (10:03)
[2022-07-23] MEDS: RALTEGRAVIR POTASSIUM 400 MG TAB PO SCH ×2 (10:03→21:22)
[2022-07-23] MEDS: NICOTINE 10 MG CARTRIDGE (INHALER) IH PRN (10:14)
[2022-07-23] MEDS ORDERED: INSULIN (NOVOLOG) ASPART 100 UNITS/ML 10ML VIAL ONE (16:44)
[2022-07-23] MEDS: MELATONIN 5 MG TABLETS PO SCH (21:21)
[2022-07-23] MEDS: THIAMINE HCL 100 MG TABLET (FP) PO SCH (21:22)
[2022-07-24] MEDS: metFORMIN HCL 500 MG TABLET (FP) PO SCH (07:01)
[2022-07-24] MEDS: INSULIN SLIDING SCALE (NOVOLOG) 1 VIAL SQ SCH ×2 (07:02→17:05)
[2022-07-24] MEDS: ASPIRIN COATED 81 MG TABLET.EC PO SCH (10:00)
[2022-07-24] MEDS: LISINOPRIL 5 MG TABLET PO SCH (10:00)
[2022-07-24] MEDS: CITALOPRAM HYDROBROMIDE 20 MG TABLET PO SCH (10:00)
[2022-07-24] MEDS: PRENATAL VITAMINS W/ FOLIC ACID TABLET (FP) PO SCH (10:00)
[2022-07-24] MEDS: GABAPENTIN 400 MG CAPSULE PO SCH ×2 (10:00→21:31)
[2022-07-24] MEDS: RALTEGRAVIR POTASSIUM 400 MG TAB PO SCH ×2 (10:01→21:31)
[2022-07-24] MEDS: lamoTRIgine 25 MG TABLET PO SCH (10:01)
[2022-07-24] MEDS: EMTRICITABINE 200MG/TENOFOVIR 300MG PO SCH (10:01)
[2022-07-24] MEDS: hydrOXYzine PAMOATE 25 MG CAPSULE (FP) PO PRN (10:02)
[2022-07-24] MEDS: MELATONIN 5 MG TABLETS PO SCH (21:31)
[2022-07-24] MEDS: THIAMINE HCL 100 MG TABLET (FP) PO SCH (21:31)
[2022-07-25] MEDS: metFORMIN HCL 500 MG TABLET (FP) PO SCH (07:09)
[2022-07-25] MEDS: INSULIN SLIDING SCALE (NOVOLOG) 1 VIAL SQ SCH ×2 (07:10→17:03)
[2022-07-25] MEDS: PRENATAL VITAMINS W/ FOLIC ACID TABLET (FP) PO SCH (10:12)
[2022-07-25] MEDS: GABAPENTIN 400 MG CAPSULE PO SCH ×2 (10:12→21:17)
[2022-07-25] MEDS: ASPIRIN COATED 81 MG TABLET.EC PO SCH (10:13)
[2022-07-25] MEDS: CITALOPRAM HYDROBROMIDE 20 MG TABLET PO SCH (10:13)
[2022-07-25] MEDS: RALTEGRAVIR POTASSIUM 400 MG TAB PO SCH ×2 (10:14→21:17)
[2022-07-25] MEDS: lamoTRIgine 25 MG TABLET PO SCH (10:14)
[2022-07-25] MEDS: EMTRICITABINE 200MG/TENOFOVIR 300MG PO SCH (10:15)
[2022-07-25] MEDS: LISINOPRIL 5 MG TABLET PO SCH (10:15)
[2022-07-25] MEDS: MELATONIN 5 MG TABLETS PO SCH (21:16)
[2022-07-25] MEDS: THIAMINE HCL 100 MG TABLET (FP) PO SCH (21:17)
[2022-07-26] MEDS: metFORMIN HCL 500 MG TABLET (FP) PO SCH (06:57)
[2022-07-26] MEDS: INSULIN SLIDING SCALE (NOVOLOG) 1 VIAL SQ SCH ×2 (07:05→16:50)
[2022-07-26] MEDS: GABAPENTIN 400 MG CAPSULE PO SCH ×2 (09:50→21:33)
[2022-07-26] MEDS: PRENATAL VITAMINS W/ FOLIC ACID TABLET (FP) PO SCH (09:50)
[2022-07-26] MEDS: ASPIRIN COATED 81 MG TABLET.EC PO SCH (09:50)
[2022-07-26] MEDS: CITALOPRAM HYDROBROMIDE 20 MG TABLET PO SCH (09:50)
[2022-07-26] MEDS: RALTEGRAVIR POTASSIUM 400 MG TAB PO SCH ×2 (09:53→21:33)
[2022-07-26] MEDS: lamoTRIgine 25 MG TABLET PO SCH (09:54)
[2022-07-26] MEDS: LISINOPRIL 5 MG TABLET PO SCH (09:55)
[2022-07-26] MEDS: EMTRICITABINE 200MG/TENOFOVIR 300MG PO SCH (09:55)
[2022-07-26] MEDS: NICOTINE 10 MG CARTRIDGE (INHALER) IH PRN (10:28)
[2022-07-26] MEDS: THIAMINE HCL 100 MG TABLET (FP) PO SCH (21:33)
[2022-07-26] MEDS: MELATONIN 5 MG TABLETS PO SCH (21:33)
[2022-07-27] MEDS: metFORMIN HCL 500 MG TABLET (FP) PO SCH (06:50)
[2022-07-27] MEDS: INSULIN SLIDING SCALE (NOVOLOG) 1 VIAL SQ SCH ×2 (06:51→17:03)
[2022-07-27] MEDS: PRENATAL VITAMINS W/ FOLIC ACID TABLET (FP) PO SCH (10:01)
[2022-07-27] MEDS: LISINOPRIL 5 MG TABLET PO SCH (10:01)
[2022-07-27] MEDS: ASPIRIN COATED 81 MG TABLET.EC PO SCH (10:01)
[2022-07-27] MEDS: GABAPENTIN 400 MG CAPSULE PO SCH ×2 (10:01→21:21)
[2022-07-27] MEDS: lamoTRIgine 25 MG TABLET PO SCH (10:01)
[2022-07-27] MEDS: CITALOPRAM HYDROBROMIDE 20 MG TABLET PO SCH (10:01)
[2022-07-27] MEDS: EMTRICITABINE 200MG/TENOFOVIR 300MG PO SCH (10:02)
[2022-07-27] MEDS: RALTEGRAVIR POTASSIUM 400 MG TAB PO SCH ×2 (10:02→21:20)
[2022-07-27] MEDS ORDERED: valACYclovir HCL 500 MG TABLET (FP) PO ONE (10:45)
[2022-07-27] MEDS: IBUPROFEN 400 MG TABLET (FP) PO PRN (10:52)
[2022-07-27] MEDS: hydrOXYzine PAMOATE 25 MG CAPSULE (FP) PO PRN (10:52)
[2022-07-27] MEDS: CHLORHEXIDINE GLUCONATE 0.12% 15ML CUP MM SCH ×2 (12:31→21:22)
[2022-07-27] MEDS: MELATONIN 5 MG TABLETS PO SCH (21:20)
[2022-07-27] MEDS: THIAMINE HCL 100 MG TABLET (FP) PO SCH (21:21)
[2022-07-28] MEDS: INSULIN SLIDING SCALE (NOVOLOG) 1 VIAL SQ SCH ×2 (07:00→16:53)
[2022-07-28] MEDS: metFORMIN HCL 500 MG TABLET (FP) PO SCH (07:00)
[2022-07-28] MEDS: PRENATAL VITAMINS W/ FOLIC ACID TABLET (FP) PO SCH (10:03)
[2022-07-28] MEDS: lamoTRIgine 25 MG TABLET PO SCH (10:04)
[2022-07-28] MEDS: ASPIRIN COATED 81 MG TABLET.EC PO SCH (10:04)
[2022-07-28] MEDS: GABAPENTIN 400 MG CAPSULE PO SCH ×2 (10:04→21:18)
[2022-07-28] MEDS: CITALOPRAM HYDROBROMIDE 20 MG TABLET PO SCH (10:04)
[2022-07-28] MEDS: LISINOPRIL 5 MG TABLET PO SCH (10:04)
[2022-07-28] MEDS: RALTEGRAVIR POTASSIUM 400 MG TAB PO SCH ×2 (10:05→21:19)
[2022-07-28] MEDS: EMTRICITABINE 200MG/TENOFOVIR 300MG PO SCH (10:05)
[2022-07-28] MEDS: CHLORHEXIDINE GLUCONATE 0.12% 15ML CUP MM SCH ×2 (10:06→21:19)
[2022-07-28] MEDS: THIAMINE HCL 100 MG TABLET (FP) PO SCH (21:18)
[2022-07-28] MEDS: MELATONIN 5 MG TABLETS PO SCH (21:18)
[2022-07-29] MEDS: metFORMIN HCL 500 MG TABLET (FP) PO SCH (06:42)
[2022-07-29] MEDS: INSULIN SLIDING SCALE (NOVOLOG) 1 VIAL SQ SCH ×2 (06:42→17:14)
[2022-07-29] MEDS: GABAPENTIN 400 MG CAPSULE PO SCH ×2 (09:55→22:25)
[2022-07-29] MEDS: PRENATAL VITAMINS W/ FOLIC ACID TABLET (FP) PO SCH (09:55)
[2022-07-29] MEDS: LISINOPRIL 5 MG TABLET PO SCH (09:55)
[2022-07-29] MEDS: ASPIRIN COATED 81 MG TABLET.EC PO SCH (09:55)
[2022-07-29] MEDS: CITALOPRAM HYDROBROMIDE 20 MG TABLET PO SCH (09:55)
[2022-07-29] MEDS: lamoTRIgine 25 MG TABLET PO SCH (09:55)
[2022-07-29] MEDS: CHLORHEXIDINE GLUCONATE 0.12% 15ML CUP MM SCH ×2 (09:56→22:25)
[2022-07-29] MEDS: RALTEGRAVIR POTASSIUM 400 MG TAB PO SCH ×2 (09:56→21:34)
[2022-07-29] MEDS: EMTRICITABINE 200MG/TENOFOVIR 300MG PO SCH (09:56)
[2022-07-29] MEDS: NICOTINE 10 MG CARTRIDGE (INHALER) IH PRN (10:58)
[2022-07-29] MEDS: THIAMINE HCL 100 MG TABLET (FP) PO SCH (21:34)
[2022-07-29] MEDS: MELATONIN 5 MG TABLETS PO SCH (21:34)
[2022-07-30] MEDS: metFORMIN HCL 500 MG TABLET (FP) PO SCH (06:49)
[2022-07-30] MEDS: INSULIN SLIDING SCALE (NOVOLOG) 1 VIAL SQ SCH ×2 (06:50→17:10)
[2022-07-30] MEDS: lamoTRIgine 25 MG TABLET PO SCH (09:45)
[2022-07-30] MEDS: LISINOPRIL 5 MG TABLET PO SCH (09:45)
[2022-07-30] MEDS: ASPIRIN COATED 81 MG TABLET.EC PO SCH (09:45)
[2022-07-30] MEDS: PRENATAL VITAMINS W/ FOLIC ACID TABLET (FP) PO SCH (09:45)
[2022-07-30] MEDS: GABAPENTIN 400 MG CAPSULE PO SCH ×2 (09:46→21:22)
[2022-07-30] MEDS: EMTRICITABINE 200MG/TENOFOVIR 300MG PO SCH (09:47)
[2022-07-30] MEDS: RALTEGRAVIR POTASSIUM 400 MG TAB PO SCH ×2 (09:47→21:23)
[2022-07-30] MEDS: CITALOPRAM HYDROBROMIDE 20 MG TABLET PO SCH (09:48)
[2022-07-30] MEDS: CHLORHEXIDINE GLUCONATE 0.12% 15ML CUP MM SCH ×2 (11:02→21:23)
[2022-07-30] MEDS ORDERED: INSULIN (NOVOLOG) ASPART 100 UNITS/ML 10ML VIAL ONE (16:28)
[2022-07-30] MEDS: MELATONIN 5 MG TABLETS PO SCH (21:23)
[2022-07-30] MEDS: THIAMINE HCL 100 MG TABLET (FP) PO SCH (21:23)
[2022-07-31] MEDS: metFORMIN HCL 500 MG TABLET (FP) PO SCH (07:27)
[2022-07-31] MEDS: INSULIN SLIDING SCALE (NOVOLOG) 1 VIAL SQ SCH ×2 (07:28→16:58)
[2022-07-31] MEDS: LISINOPRIL 5 MG TABLET PO SCH (09:50)
[2022-07-31] MEDS: CITALOPRAM HYDROBROMIDE 20 MG TABLET PO SCH (09:50)
[2022-07-31] MEDS: PRENATAL VITAMINS W/ FOLIC ACID TABLET (FP) PO SCH (09:50)
[2022-07-31] MEDS: CHLORHEXIDINE GLUCONATE 0.12% 15ML CUP MM SCH ×2 (09:51→21:25)
[2022-07-31] MEDS: lamoTRIgine 25 MG TABLET PO SCH (09:51)
[2022-07-31] MEDS: RALTEGRAVIR POTASSIUM 400 MG TAB PO SCH ×2 (09:51→21:24)
[2022-07-31] MEDS: GABAPENTIN 400 MG CAPSULE PO SCH ×2 (09:51→21:23)
[2022-07-31] MEDS: EMTRICITABINE 200MG/TENOFOVIR 300MG PO SCH (09:51)
[2022-07-31] MEDS: ASPIRIN COATED 81 MG TABLET.EC PO SCH (09:51)
[2022-07-31] MEDS ORDERED: LIDOCAINE VISCOUS 2% ORAL/TOP 15 ML UNIT-DOSE CUP MM PRN (11:12)
[2022-07-31] MEDS: MELATONIN 5 MG TABLETS PO SCH (21:23)
[2022-07-31] MEDS: THIAMINE HCL 100 MG TABLET (FP) PO SCH (21:24)
[2022-07-31] MEDS: valACYclovir HCL 500 MG TABLET (FP) PO SCH (21:24)
[2022-07-31 22:53] VITALS: RESP 18
[2022-08-01] MEDS: INSULIN SLIDING SCALE (NOVOLOG) 1 VIAL SQ SCH ×2 (07:01→17:00)
[2022-08-01] MEDS: metFORMIN HCL 500 MG TABLET (FP) PO SCH (07:01)
[2022-08-01] MEDS: lamoTRIgine 25 MG TABLET PO SCH (10:09)
[2022-08-01] MEDS: PRENATAL VITAMINS W/ FOLIC ACID TABLET (FP) PO SCH (10:09)
[2022-08-01] MEDS: ASPIRIN COATED 81 MG TABLET.EC PO SCH (10:09)
[2022-08-01] MEDS: valACYclovir HCL 500 MG TABLET (FP) PO SCH ×2 (10:09→21:19)
[2022-08-01] MEDS: CITALOPRAM HYDROBROMIDE 20 MG TABLET PO SCH (10:10)
[2022-08-01] MEDS: EMTRICITABINE 200MG/TENOFOVIR 300MG PO SCH (10:10)
[2022-08-01] MEDS: GABAPENTIN 400 MG CAPSULE PO SCH ×2 (10:10→21:19)
[2022-08-01] MEDS: RALTEGRAVIR POTASSIUM 400 MG TAB PO SCH ×2 (10:10→21:19)
[2022-08-01] MEDS: CHLORHEXIDINE GLUCONATE 0.12% 15ML CUP MM SCH ×2 (10:10→21:20)
[2022-08-01] MEDS: LISINOPRIL 5 MG TABLET PO SCH (10:10)
[2022-08-01] MEDS: THIAMINE HCL 100 MG TABLET (FP) PO SCH (21:19)
[2022-08-01] MEDS: MELATONIN 5 MG TABLETS PO SCH (21:19)
[2022-08-02] MEDS: metFORMIN HCL 500 MG TABLET (FP) PO SCH (06:13)
[2022-08-02] MEDS: INSULIN SLIDING SCALE (NOVOLOG) 1 VIAL SQ SCH (06:13)
[2022-08-02 07:07] VITALS: BP 138/85; PULSE 69; TEMP 97.6
[2022-08-02] MEDS: GABAPENTIN 400 MG CAPSULE PO SCH (09:08)
[2022-08-02] MEDS: ASPIRIN COATED 81 MG TABLET.EC PO SCH (09:08)
[2022-08-02] MEDS: valACYclovir HCL 500 MG TABLET (FP) PO SCH (09:09)
[2022-08-02] MEDS: CITALOPRAM HYDROBROMIDE 20 MG TABLET PO SCH (09:09)
[2022-08-02] MEDS: lamoTRIgine 25 MG TABLET PO SCH (09:09)
[2022-08-02] MEDS: RALTEGRAVIR POTASSIUM 400 MG TAB PO SCH (09:10)
[2022-08-02] MEDS: PRENATAL VITAMINS W/ FOLIC ACID TABLET (FP) PO SCH (09:11)
[2022-08-02] MEDS: CHLORHEXIDINE GLUCONATE 0.12% 15ML CUP MM SCH (09:11)
[2022-08-02] MEDS: EMTRICITABINE 200MG/TENOFOVIR 300MG PO SCH (09:11)
[2022-08-02] MEDS: LISINOPRIL 5 MG TABLET PO SCH (09:12)
== END 2022-08-02 09:15 | disposition home or self-care (01) | DRG 772 ==
LOC: YASAS 14:30 → Y3W 14:33 → Y5N 07-10 15:07
PROVIDERS: ADMIT Allergy & Immunology; ATTEND Psychiatry & Neurology Pain Medicine
PROC: HZ42ZZZ Group Counseling for Substance Abuse Treatment, Cognitive-Behavioral (ICD-10-PCS; principal; 2022-07-07)
DX: F11.20 Opioid dependence, uncomplicated (principal); F14.20 Cocaine dependence, uncomplicated; F19.282 Other psychoactive substance dependence with psychoactive substance-induced sleep disorder; F19.280 Other psychoactive substance dependence with psychoactive substance-induced anxiety disorder; F12.20 Cannabis dependence, uncomplicated; F17.210 Nicotine dependence, cigarettes, uncomplicated; F19.24 Other psychoactive substance dependence with psychoactive substance-induced mood disorder; F39 Unspecified mood [affective] disorder; F41.9 Anxiety disorder, unspecified; F32.A Depression, unspecified; B00.1 Herpesviral vesicular dermatitis; I10 Essential (primary) hypertension; E11.9 Type 2 diabetes mellitus without complications; Z79.84 Long term (current) use of oral hypoglycemic drugs; S09.90XA Unspecified injury of head, initial encounter; W22.8XXA Striking against or struck by other objects, initial encounter; Y92.230 Patient room in hospital as the place of occurrence of the external cause
CPT/HCPCS: 71046-TC-FY; 82962

== ENCOUNTER 2022-11-21 19:07 | Inpatient (IN) | payer OTHER ==
[2022-11-21 19:34] VITALS: BMI 34.8
[2022-11-21] MEDS ORDERED: LIDOCAINE VISCOUS 2% ORAL/TOP 15 ML UNIT-DOSE CUP MM PRN (20:06)
[2022-11-21] MEDS ORDERED: MAGNESIUM HYDROX 2400MG/30ML ORAL SUSPENSION 30 ML CUP PO PRN (20:16)
[2022-11-21] MEDS ORDERED: MAG HYDROX/AL HYDROX/SIMETH 30 ML UNIT-DOSE CUP PO PRN (20:16)
[2022-11-21] MEDS ORDERED: POLYETHYLENE GLYCOL (HEALTHYLAX) 3350 17 GM PACKET PO PRN (20:16)
[2022-11-21] MEDS ORDERED: IBUPROFEN 400 MG TABLET (FP) PO PRN (20:16)
[2022-11-21] MEDS ORDERED: NICOTINE 10 MG CARTRIDGE (INHALER) IH PRN (20:16)
[2022-11-21] MEDS ORDERED: P-EPHED 60MG/TRIPROLIDI 2.5MG TABLET PO PRN (20:16)
[2022-11-21] MEDS ORDERED: ACETAMINOPHEN 325 MG TABLET (FP) PO PRN (20:16)
[2022-11-21] MEDS ORDERED: LOPERAMIDE HCL 2 MG CAPSULE PO PRN (20:16)
[2022-11-21] MEDS ORDERED: BENZOCAINE/MENTHOL (CHLORASEPTIC ) LOZENGE MM PRN (20:16)
[2022-11-22 00:44] VITALS: RESP 18
[2022-11-22] MEDS: MELATONIN 5 MG TABLETS PO PRN ×2 (00:56→21:09)
[2022-11-22] MEDS: GABAPENTIN 400 MG CAPSULE PO SCH ×4 (01:51→21:08)
[2022-11-22] MEDS: THIAMINE HCL 100 MG TABLET (FP) PO SCH ×2 (01:51→21:08)
[2022-11-22] MEDS: metFORMIN HCL 500 MG TABLET (FP) PO SCH (06:49)
[2022-11-22] MEDS: BICTEGRAV/EMTRICIT/TENOFOV (BIKTARVY) 50-200-25 MG TABLET PO SCH (09:47)
[2022-11-22] MEDS: ASPIRIN COATED 81 MG TABLET.EC PO SCH (09:47)
[2022-11-22] MEDS: PRENATAL VITAMINS W/ FOLIC ACID TABLET (FP) PO SCH (09:47)
[2022-11-22] MEDS: guaiFENesin 200 MG/10 ML 10 ML UNIT-DOSE CUPS PO PRN (10:30)
[2022-11-22 11:05] LABS: PH,URINE 6.5 (5.0-8.0); URINE APPEARANCE CLEAR; URINE BILIRUBIN NEGATIVE (NEGATIVE); URINE COLOR YELLOW; URINE GLUCOSE (UA) NEGATIVE (NEGATIVE); URINE KETONE NEGATIVE (NEGATIVE); URINE LEUK ESTERASE NEGATIVE (NEGATIVE); URINE NITRITE NEGATIVE (NEGATIVE); URINE PROTEIN NEGATIVE (NEGATIVE); URINE UROBILINOGEN 0.2 mg/dL (0.2-1.0)
[2022-11-22 11:31] LABS: CALCIUM 9.1 mg/dL (8.5-10.1)
[2022-11-22 11:32] LABS: ALBUMIN 3.2 g/dl (3.4-5.0)
[2022-11-22 11:35] LABS: CREATININE 1.1 mg/dL (0.55-1.3)
[2022-11-22] MEDS ORDERED: lamoTRIgine 25 MG TABLET PO ONE (11:35)
[2022-11-22] MEDS ORDERED: CITALOPRAM HYDROBROMIDE 20 MG TABLET PO ONE (11:35)
[2022-11-22 11:37] LABS: BILIRUBIN,TOTAL 0.2 mg/dL (0.2-1); HEMATOCRIT 41.8 % (35.4-49); HEMOGLOBIN 13.8 GM/dL (11.7-16.9); PLATELET COUNT 241 10^3/uL (134-434); RBC 4.91 M/mm3 (4.00-5.60); RDW 14.4 % (11.9-15.9); TOT PROT 7.2 g/dl (6.4-8.2); WHITE BLOOD COUNT 6.6 K/mm3 (4.0-10.0)
[2022-11-23] MEDS: GABAPENTIN 400 MG CAPSULE PO SCH ×3 (06:57→21:36)
[2022-11-23] MEDS: metFORMIN HCL 500 MG TABLET (FP) PO SCH (06:57)
[2022-11-23] MEDS: ASPIRIN COATED 81 MG TABLET.EC PO SCH (09:34)
[2022-11-23] MEDS: CITALOPRAM HYDROBROMIDE 20 MG TABLET PO SCH (09:34)
[2022-11-23] MEDS: PRENATAL VITAMINS W/ FOLIC ACID TABLET (FP) PO SCH (09:34)
[2022-11-23] MEDS: lamoTRIgine 25 MG TABLET PO SCH (09:34)
[2022-11-23] MEDS: BICTEGRAV/EMTRICIT/TENOFOV (BIKTARVY) 50-200-25 MG TABLET PO SCH (09:34)
[2022-11-23] MEDS: LOSARTAN 50MG/HCTZ 12.5MG 1 TAB PO SCH (10:13)
[2022-11-23] MEDS: guaiFENesin 200 MG/10 ML 10 ML UNIT-DOSE CUPS PO PRN (15:01)
[2022-11-23] MEDS: THIAMINE HCL 100 MG TABLET (FP) PO SCH (21:36)
[2022-11-23] MEDS: MELATONIN 5 MG TABLETS PO PRN (21:37)
[2022-11-24] MEDS: GABAPENTIN 400 MG CAPSULE PO SCH ×3 (07:39→21:21)
[2022-11-24] MEDS: BICTEGRAV/EMTRICIT/TENOFOV (BIKTARVY) 50-200-25 MG TABLET PO SCH (07:42)
[2022-11-24] MEDS: lamoTRIgine 25 MG TABLET PO SCH (09:41)
[2022-11-24] MEDS: PRENATAL VITAMINS W/ FOLIC ACID TABLET (FP) PO SCH (09:41)
[2022-11-24] MEDS: CITALOPRAM HYDROBROMIDE 20 MG TABLET PO SCH (09:41)
[2022-11-24] MEDS: LOSARTAN 50MG/HCTZ 12.5MG 1 TAB PO SCH (09:41)
[2022-11-24] MEDS: ASPIRIN COATED 81 MG TABLET.EC PO SCH (09:41)
[2022-11-24] MEDS: guaiFENesin 200 MG/10 ML 10 ML UNIT-DOSE CUPS PO PRN (11:22)
[2022-11-24] MEDS: THIAMINE HCL 100 MG TABLET (FP) PO SCH (21:21)
[2022-11-24] MEDS: MELATONIN 5 MG TABLETS PO PRN (21:21)
[2022-11-25] MEDS: GABAPENTIN 400 MG CAPSULE PO SCH ×3 (07:05→21:06)
[2022-11-25] MEDS: BICTEGRAV/EMTRICIT/TENOFOV (BIKTARVY) 50-200-25 MG TABLET PO SCH (07:07)
[2022-11-25] MEDS: LOSARTAN 50MG/HCTZ 12.5MG 1 TAB PO SCH (10:15)
[2022-11-25] MEDS: lamoTRIgine 25 MG TABLET PO SCH (10:15)
[2022-11-25] MEDS: CITALOPRAM HYDROBROMIDE 20 MG TABLET PO SCH (10:15)
[2022-11-25] MEDS: PRENATAL VITAMINS W/ FOLIC ACID TABLET (FP) PO SCH (10:15)
[2022-11-25] MEDS: ASPIRIN COATED 81 MG TABLET.EC PO SCH (10:15)
[2022-11-25] MEDS: THIAMINE HCL 100 MG TABLET (FP) PO SCH (21:06)
[2022-11-25] MEDS: MELATONIN 5 MG TABLETS PO PRN (21:06)
[2022-11-26] MEDS: GABAPENTIN 400 MG CAPSULE PO SCH ×3 (06:45→21:24)
[2022-11-26] MEDS: guaiFENesin 200 MG/10 ML 10 ML UNIT-DOSE CUPS PO PRN (06:47)
[2022-11-26] MEDS: BICTEGRAV/EMTRICIT/TENOFOV (BIKTARVY) 50-200-25 MG TABLET PO SCH (07:10)
[2022-11-26] MEDS: PRENATAL VITAMINS W/ FOLIC ACID TABLET (FP) PO SCH (09:41)
[2022-11-26] MEDS: LOSARTAN 50MG/HCTZ 12.5MG 1 TAB PO SCH (09:42)
[2022-11-26] MEDS: ASPIRIN COATED 81 MG TABLET.EC PO SCH (09:42)
[2022-11-26] MEDS: CITALOPRAM HYDROBROMIDE 20 MG TABLET PO SCH (09:42)
[2022-11-26] MEDS: lamoTRIgine 25 MG TABLET PO SCH (09:42)
[2022-11-26] MEDS: THIAMINE HCL 100 MG TABLET (FP) PO SCH (21:24)
[2022-11-26] MEDS: MELATONIN 5 MG TABLETS PO PRN (21:24)
[2022-11-27] MEDS: GABAPENTIN 400 MG CAPSULE PO SCH ×3 (06:54→21:20)
[2022-11-27] MEDS: BICTEGRAV/EMTRICIT/TENOFOV (BIKTARVY) 50-200-25 MG TABLET PO SCH (07:23)
[2022-11-27] MEDS: ASPIRIN COATED 81 MG TABLET.EC PO SCH (10:29)
[2022-11-27] MEDS: lamoTRIgine 25 MG TABLET PO SCH ×2 (10:29→21:21)
[2022-11-27] MEDS: LOSARTAN 50MG/HCTZ 12.5MG 1 TAB PO SCH (10:29)
[2022-11-27] MEDS: CITALOPRAM HYDROBROMIDE 20 MG TABLET PO SCH (10:29)
[2022-11-27] MEDS: PRENATAL VITAMINS W/ FOLIC ACID TABLET (FP) PO SCH (10:29)
[2022-11-27] MEDS: hydrOXYzine PAMOATE 25 MG CAPSULE (FP) PO PRN (13:34)
[2022-11-27] MEDS: THIAMINE HCL 100 MG TABLET (FP) PO SCH (21:20)
[2022-11-27] MEDS ORDERED: SUVOREXANT 10 MG TABLET PO PRN (22:00)
[2022-11-28] MEDS: GABAPENTIN 400 MG CAPSULE PO SCH (06:43)
[2022-11-28 06:48] VITALS: BP 134/83; PULSE 65; TEMP 97.6
[2022-11-28] MEDS: BICTEGRAV/EMTRICIT/TENOFOV (BIKTARVY) 50-200-25 MG TABLET PO SCH (07:15)
[2022-11-28] MEDS: CITALOPRAM HYDROBROMIDE 20 MG TABLET PO SCH (10:08)
[2022-11-28] MEDS: ASPIRIN COATED 81 MG TABLET.EC PO SCH (10:08)
[2022-11-28] MEDS: PRENATAL VITAMINS W/ FOLIC ACID TABLET (FP) PO SCH (10:08)
[2022-11-28] MEDS: lamoTRIgine 25 MG TABLET PO SCH (10:08)
[2022-11-28] MEDS: LOSARTAN 50MG/HCTZ 12.5MG 1 TAB PO SCH (10:08)
[2022-11-28] MEDS: hydrOXYzine PAMOATE 25 MG CAPSULE (FP) PO PRN (10:11)
== END 2022-11-28 11:05 | disposition home or self-care (01) | DRG 772 ==
LOC: YASAS 19:07 → Y3E 20:02 → Y5N 20:08
PROVIDERS: ADMIT Allergy & Immunology; ATTEND Psychiatry & Neurology Pain Medicine
PROC: HZ42ZZZ Group Counseling for Substance Abuse Treatment, Cognitive-Behavioral (ICD-10-PCS; principal; 2022-11-21)
DX: F10.20 Alcohol dependence, uncomplicated (principal); F14.20 Cocaine dependence, uncomplicated; F12.20 Cannabis dependence, uncomplicated; F17.210 Nicotine dependence, cigarettes, uncomplicated; F19.282 Other psychoactive substance dependence with psychoactive substance-induced sleep disorder; F19.280 Other psychoactive substance dependence with psychoactive substance-induced anxiety disorder; F19.24 Other psychoactive substance dependence with psychoactive substance-induced mood disorder; F39 Unspecified mood [affective] disorder; B20 Human immunodeficiency virus [HIV] disease; I10 Essential (primary) hypertension; B18.2 Chronic viral hepatitis C; E11.42 Type 2 diabetes mellitus with diabetic polyneuropathy; Z79.84 Long term (current) use of oral hypoglycemic drugs
CPT/HCPCS: 36415; 80053; 81003; 82962; 85027; 86780; 86803; 87522; C9803-CS; U0003; U0005